=== PATIENT | female | born 1945 ===

== ENCOUNTER 2025-03-01 13:11 | Inpatient (IN) | payer OTHER ==
--- OUTSIDE RECORDS SUMMARY | 2025-03-01 13:15 | XMS REPORT | Clinical Summary ---
Author Name Unknown Organization [facility] Address [address] [place] [address] Care Team Providers Care Human Resources Supervisor Name Role Phone None Unavailable Allergies No known active allergies Medications gabapentin (Neurontin) 300 mg capsuleIndicat ions:Breast cancer Take 1 capsule (300 mg) by mouth every morning. 30 capsule 5 Active gabapentin (Neurontin) 300 mg capsuleIndicat ions:Breast cancer Take 1 capsule (300 mg) by mouth every morning. 30 capsule 5 08/24/19 25 Discontinued gabapentin (Neurontin) 300 mg capsuleIndicat ions:Breast cancer Take 1 capsule (300 mg) by mouth every morning. 30 capsule 5 08/26/19 25 Discontinued gabapentin (Neurontin) 300 mg capsuleIndicat ions:Breast cancer Take 1 capsule (300 mg) by mouth every morning. 30 capsule 5 08/26/19 25 Discontinued Encounters Date Type Department Care Team Description 08/23/2024 5:22 PM CDT - 08/23/2024 9:14 PM CDT Emergency [facility], 1st [place] [address] Chris Donato MD Breast cancer (Primary Dx); Lymphedema; Neuropathy Discharge Disposition: Home 08/23/2024 Travel after 03/01/2024 Social History Tobacco Use Types Packs/Day Years Used Date Smoking Tobacco: Never Assessed Comments Unknown Sex and Gender Information Value Date Recorded Sex Assigned at Not on file Legal Sex Female 5:12 PM CDT Gender Identity Not on file Sexual Orientation Not on file Last Filed Vital Signs Vital Sign Reading Time Taken Comments Blood Pressure 150/81 08/23/2024 7:50 PM CDT Pulse 80 08/23/2024 7:50 PM CDT Temperature 36.3 °C (97.3 °F) 08/23/2024 7:50 PM CD T Respiratory Rate 19 08/23/2024 7:50 PM CDT Oxygen Saturation 96% 08/23/2024 7:50 PM CDT Inhaled Oxygen Concentration - - Weight - - Height - - Body Mass Index - - Plan of Treatment Health Maintenance Due Date Last Done Comments Pneumococcal Vaccine: 50+ Years (1 of - PCV) 994 COVID-19 Vaccine ( - season) 2025 Influenza Vaccine (#1) 2025 05/10/2021 Procedures Procedure Name Priority Date/Time Associated Diagnosis Comments URINALYSIS MICROSCOPIC EXAM Routine 08/23/2024 7:29 PM CDT URINALYSIS WITH MICROSCOPIC IF INDICATED Routine 08/23/2024 7:29 PM CDT URINALYSIS WITH MICROSCOPIC IF INDICATED Routine 08/23/2024 7:29 PM CDT .CBC Routine 08/23/2024 6:36 PM CDT APTT Routine 08/23/2024 6:36 PM CDT PROTHROMBIN TIME Routine 08/23/2024 6:36 PM CDT PHOSPHORUS LEVEL Routine 08/23/2024 6:36 PM CDT MAGNESIUM LEVEL Routine 08/23/2024 6:36 PM CDT COMPREHENSIVE METABOLIC PANEL Routine 08/23/2024 6:36 PM CDT COMPLETE BLOOD COUNT W/ DIFFERENTIAL Routine 08/23/2024 6:36 PM CDT US ARM VENOUS DOPPLER RIGHT STAT 08/23/2024 6:13 PM CDT after 03/01/2024 Results * (ABNORMAL) Urinalysis w/Microscopic if Indicated (08/23/2024 7:29 PM CDT) Urine Appearance Clear Clear 08/24/19 7:48 PM CDT [facility] Urine Color Yellow Colorless, Straw, Yellow, Dark Yellow, Straw-Yellow 08/23/2024 7:48 PM CDT [facility] Urine Specific [place] 1.023 1.003 - 1.035 08/23/2024 7:48 PM CDT [facility] Urine pH 6.5 5.0 - 8.0 08/23/2024 7:48 PM CDT [facility] Urine Glucose Negative Negative mg/dL 08/23/2024 7:48 PM CDT [facility] Urine Ketones 10(A) Negative mg/dL 08/23/2024 7:48 PM CDT [facility] Urine Blood Negative Negative 08/23/2024 7:48 PM CDT [facility] Urine Protein 10(A) Negative mg/dL 08/23/2024 7:48 PM CDT [facility] Urine Bilirubin Negative Negative 7:48 PM CDT [facility] Urine Urobilinogen +2(A) Negative 08/23/2024 7:48 PM CDT [facility] Urine Nitrite Negative Negative 08/23/2024 7:48 PM CDT [facility] Urine Leukocyte Esterase Negative Negative 08/23/2024 7:48 PM CDT [facility] Urine (Urine Clean Catch) Non-blood Collection / Unknown 08/23/2024 7:29 PM CDT 08/23/2024 7:39 PM CDT [facility] - 08/23/2024 7:48 PM CDT Some reporting parameters within the Urinalysis test have changed due to the implementation of new instrumentation in the Main [place], allowing greater sensitivity of measurement. Urinalysis results reported by the [facility] using existing instrumentation, as well as Urinalysis testing performed manually or by back-up methodology at the main campus, will remain relatively unchanged. New reporting parameters and units will now be reported for all flushinges. us Chris Donato MD URINE ORDERABLES Final Result Performing Organization Address City/[facility]/ZIP Co de Phone Number [facility] Unless otherwise noted, all lab tests performed by: Division of Pathology and Laboratory Medicine [address] [place] [id number] * (ABNORMAL) Urinalysis Microscopic Exam (08/23/2024 7:29 PM CDT) Pathologist [facility] Urine Mucous Trace Not Seen, Trace /HPF 08/23/2024 7:55 PM CDT [facility] Urine Bacteria 1+(A) Not Seen /HPF 08/23/2024 7:55 PM CDT [facility] Urine Squamous Epithelial Cells OCC Not Seen, OCC, Rare /HPF 08/23/2024 7:55 PM CDT [facility] UA Transitional Epi OCC(A) Not Seen, <1 /HPF 08/23/2024 7:55 PM CDT [facility] Urine WBC 1 <=2 /HPF 08/23/2024 7:55 PM CDT [facility] Urine RBC 08/23/2024 7:55 PM CDT [facility] Comment:None Seen Urine (Urine Clean Catch) Non-blood Collection / Unknown 08/23/2024 7:29 PM CDT 08/23/2024 7:39 PM CDT Chris Donato MD LAB BLOOD ORDERABLES Final Resul t Performing Organization Address City/[facility]/ZIP Co de Phone Number [facility] Unless otherwise noted, all lab tests performed by: Division of Pathology and Laboratory Medicine [address] [place] [id number] * (ABNORMAL) .CBC (08/23/2024 6:36 PM CDT) White Blood Cell 7.0 4.1 - 10.5 K/uL 08/23/2024 6:47 PM CDT [facility] Red Blood Cell 4.05 3.99 - 5.46 M/uL 08/23/2024 6:47 PM CDT [facility] Hemoglobin 11.3(L) 12.2 - 15.3 g/dL 08/23/2024 6:47 PM CDT [facility] Hematocrit 35.2(L) 36.4 - 46.8 % 08/23/2024 6:47 PM CDT [facility] Mean Cell Volume 87 82 - 99 fL 08/23/2024 6:47 PM CDT [facility] Mean Cell Hemoglobin 27.9 26.6 - 33.2 pg 08/23/2024 6:47 PM CDT [facility] Mean Cell Hemoglobin Concentration 32.1 31.1 - 35.2 g/dL 08/23/2024 6:47 PM CDT [facility] RDW-SD 54.4(H) 37.5 - 49.7 fL 08/23/2024 6:47 PM CDT [facility] Red Cell Diameter Width 17.2(H) 11.6 - 15.5 % 08/23/2024 6:47 PM CDT [facility] Platelet 318 160 - 397 K/uL 08/23/2024 6:47 PM CDT [facility] Mean Platelet Volume 12.0 9.1 - 12.6 fL 08/23/2024 6:47 PM CDT [facility] INRBC 0.0 0.0 - 0.1 /100 WBC 08/23/2024 6:47 PM T [facility] Comment: The INRBC (instrument NRBC) value reflects the enumeration of nucleated red blood cells contained in a 200uL sample of whole blood analyzed by the instrument. This value may differ from the NRBC value reported in a manual differential, which is based on a 100 cell differential. Neutrophil % 66.6 43.2 - 72.7 % 08/23/2024 6:47 PM CDT [facility] Lymphocyte % 21.3 16.8 - 46.2 % 08/23/2024 6:47 PM CDT [facility] Monocyte % 9.3 5.1 - 12.5 % 08/23/2024 6:47 PM CDT [facility] Eosinophil % 1.1 0.4 - 6.3 % 08/23/2024 6:47 PM CDT [facility] Basophil % 1.1 0.2 - 1.4 % 08/23/2024 6:47 PM CDT [facility] IGRE % 0.6 0.1 - 1.5 % 08/23/2024 6:47 PM CDT [facility] Comment:The IGRE% includes M etamyelocytes, Myelocytes and Promyelocytes. Neutrophil Abs 4.63 1.95 - 7.25 K/uL 08/23/2024 6:47 PM CDT [facility] Lymphocyte Abs 1.48 1.01 - 3.24 K/uL 08/23/2024 6:47 PM CDT [facility] Monocyte Abs 0.65 0.24 - 0.85 K/uL 08/23/2024 6:47 PM CDT [facility] Eosinophil Abs 0.08 0.02 - 0.50 K/uL 08/23/2024 6:47 PM CDT [facility] Basophil Abs 0.08 0.02 - 0.09 K/uL 08/23/2024 6:47 PM CDT [facility] IG Abs 0.04 0.01 - 0.12 K/uL 08/23/2024 6:47 PM CDT [facility] Blood Peripheral blood specimen / Unknown Venipuncture / Unknown 08/23/2024 6:36 PM CDT 08/23/2024 6:42 PM CDT Chris Donato MD LAB BLOOD ORDERABLES Final Resul t [facility] Unless otherwise noted, all lab tests performed by: Division of Pathology and Laboratory Medicine [address] [place] [id number] * (ABNORMAL) Comprehensive Metabolic Panel (08/23/2024 6:36 PM CDT) Bilirubin Total 0.8 0.0 - 1.2 mg/dL 08/23/2024 7:05 PM CDT [facility] Comment:Indocyanine Green (I CG) may cause falsely elevated bilirubin results. Total and direct bilirubin must not be measured from samples containing indocyanine green. False elevation of total bilirubin can be seen in patients with IgG concentrations above 28 g/L. eGFR 87 >=60 mL/min/1. 73 sq. m 08/23/2024 7:05 PM T [facility] Comment: The eGFRcr is calculated with the 2020 CKD-EPI creatinine equation using creatinine, patient's age, and sex for adults 18 years of age and older. Other factors, especially muscle mass, may affect accuracy and need to be considered. According to the Kidney Disease: Improving Global Outcomes (KDIGO) CKD Work Group 2012 Clinical Practice Guideline, chronic kidney disease (CKD) is defined as the abnormalities of kidney structure or function, present for more than 3 months, with implications for health. CKD should be classified by cause, GFR category, and albuminuria category. KDIGO guidelines provide the following GFR categories. Stage / Description / GFR mL/min/1.73 m2: G1* / Normal or high / >= 90 G2* / Mildly decreased / 60-89 G3a / Mildly to moderately decreased / 45-59 G3b / Moderately to severely decreased / 30-44 G4 / Severely decreased / 15-29 G5 / Kidney failure / <15 *In the absence of evidence of kidney damage, neither G1 nor G2 fulfill criteria for CKD. Tot Protein 6.5 6.4 - 8.3 gm/dL 08/23/2024 7:05 PM CDT [facility] Calcium Level Total 9.3 8.2 - 10.2 mg/dL 08/23/2024 7:05 PM CDT [facility] Alkaline Phosphatase 250(H) 35 - 104 U/L 08/23/2024 7:05 PM CDT [facility] Albumin Level 3.2(L) 3.5 - 5.2 gm/dL 08/23/2024 7:05 PM CDT [facility] AST 26 <=32 U/L 08/23/2024 7:05 PM CDT [facility] ALT 11 <=33 U/L 08/23/2024 7:05 PM CDT [facility] Sodium Level 140 136 - 145 mmol/L 08/23/2024 7:05 PM CDT [facility] Potassium Level 4.0 3.4 - 4.5 mmol/L 08/23/2024 7:05 PM CDT [facility] Chloride 105 98 - 107 mmol/L 08/23/2024 7:05 PM CDT [facility] CO2 21(L) 22 - 29 mmol/L 08/23/2024 7:05 PM CDT [facility] Anion Gap 14 4 - 14 mmol/L 08/23/2024 7:05 PM CDT [facility] Creatinine 0.70 0.51 - 0.95 mg/dL 08/23/2024 7:05 PM CDT [facility] BUN 15 6 - 23 mg/dL 08/23/2024 7:05 PM CDT [facility] Glucose Level 136(H) 70 - 99 mg/dL 08/23/2024 7:05 PM CDT [facility] Comment: Effective 01/05/16, the glucose reference intervals have been updated based on [place] [employer] guidelines (Standards of Medical Care in Diabetes 2016. Diabetes Care 2016; 39: S13-S22). Fasting blood glucose: Normal: 70-99 mg/dL Impaired fasting glucose (increased risk for diabetes or pre-diabetes): 100-125 mg/dL Diabetes mellitus: >/=126 mg/dL Random blood glucose: Normal: 70-199 mg/dL Note: Random glucose >100 mg/dL is associated with increased risk for diabetes. Blood Peripheral blood specimen / Unknown Venipuncture / Unknown 08/23/2024 6:36 PM CDT 08/23/2024 6:42 PM CDT us Chris Donato MD LAB BLOOD ORDERABLES Final Resul t [facility] Unless otherwise noted, all lab tests performed by: Division of Pathology and Laboratory Medicine [address] [place] [id number] * (ABNORMAL) aPTT (08/23/2024 6:36 PM CDT) Activated PTT 36.1(H) 24.8 - 35.6 second(s) 08/23/2024 7:09 PM CDT [facility] Blood Peripheral blood specimen / Unknown Venipuncture / Unknown 08/23/2024 6:36 PM CDT 08/23/2024 6:42 PM CDT us Chris Donato MD LAB BLOOD ORDERABLES Final Resul t [facility] Unless otherwise noted, all lab tests performed by: Division of Pathology and Laboratory Medicine [address] [place] [id number] * (ABNORMAL) Prothrombin Time with INR (08/23/2024 6:36 PM CDT) Pathologist [facility] Prothrombin Time 18.6(H) 12.2 - 14.4 second(s) 08/23/2024 7:09 PM CDT [facility] International Normalization Ratio 1.59(H) 0.91 - 1.10 08/23/2024 7:09 PM CDT [facility] Blood Peripheral blood specimen / Unknown Venipuncture / Unknown 08/23/2024 6:36 PM CDT 08/23/2024 6:42 PM CDT us Chris Donato MD LAB BLOOD ORDERABLES Final Resul t Performing Organization Address City/[facility]/ZIP Co de Phone Number [facility] Unless otherwise noted, all lab tests performed by: Division of Pathology and Laboratory Medicine [address] [place] [id number] * Phosphorus Level (08/23/2024 6:36 PM CDT) Pathologist [facility] Phosphorus Level 3.4 2.5 - 4.5 mg/dL 08/23/2024 7:05 PM CDT [facility] Blood Peripheral blood specimen / Unknown Venipuncture / Unknown 08/23/2024 6:36 PM CDT 08/23/2024 6:42 PM CDT us Chris Donato MD LAB BLOOD ORDERABLES Final Resul t [facility] Unless otherwise noted, all lab tests performed by: Division of Pathology and Laboratory Medicine [address] [place] [id number] * Magnesium Level (08/23/2024 6:36 PM CDT) Magnesium Level 2.1 1.6 - 2.6 mg/dL 08/23/2024 7:05 PM CDT [facility] Blood Peripheral blood specimen / Unknown Venipuncture / Unknown 08/23/2024 6:36 PM CDT 08/23/2024 6:42 PM CDT us Chris Donato MD LAB BLOOD ORDERABLES Final Resul t [facility] Unless otherwise noted, all lab tests performed by: Division of Pathology and Laboratory Medicine [facility] [place] [address] * US Arm Venous Doppler Right (08/23/2024 6:13 PM CDT) Anatomical Region Laterality Modality Arm, Extremity Ultrasound 08/23/2024 6:39 PM CDT Impressions 08/23/2024 6:39 PM CDT No deep venous thrombosis in the right upper extremity ACTIONABLE ITEMS/RECOMMENDATIONS*: None. *An Actionable Finding is a finding that may be unrelated to the original reason for imaging but potentially actionable, meaning further investigation may be necessary. The Actionable Findings Vigilance Unit (AFVU) assists medical providers with responding to additional radiologic findings that are unexpected and potentially actionable. Narrative 08/23/2024 6:39 PM CDT Examination: US ARM VENOUS DOPPLER RIGHT on 08/23/2024 6:13 PM. Clinical History: Right upper extremity swelling. Indication: Arm/Neck Swelling. Comparison: None available. TECHNIQUE: Grayscale and color/spectral Doppler ultrasound of the right upper extremity veins. FINDINGS: There is normal compressibility and spontaneous flow within the internal jugular vein. Spontaneous flow within the proximal segment of the innominate vein and throughout the visualized subclavian vein. Normal compressibility and spontaneous flow within the axillary, brachial, basilic and cephalic veins. Procedure Note Nery Villegas MD - 08/23/2024 Examination: US ARM VENOUS DOPPLER RIGHT on 08/23/2024 6:13 PM. Clinical History: Right upper extremity swelling. Indication: Arm/Neck Swelling. Comparison: None available. TECHNIQUE: Grayscale and color/spectral Doppler ultrasound of the rightupper extremity veins. FINDINGS: There is normal compressibility and spontaneous flow within the internaljugular vein. Spontaneous flow within the proximal segment of theinnominate vein and throughout the visualized subclavian vein. Normalcompressibility and spontaneous flow within the axillary, brachial,basilic and cephalic veins. IMPRESSION: No deep venous thrombosis in the right upper extremity ACTIONABLE ITEMS/RECOMMENDATIONS*: None. *An Actionable Finding is a finding that may be unrelated to the originalreason for imaging but potentially actionable, meaning furtherinvestigation may be necessary. The Actionable Findings Vigilance Unit(AFVU) assists medical providers with responding to additional radiologicfindings that are unexpected and potentially actionable. Chris Donato MD [facility] ORDERABLES Final Result after 03/01/2024 Insurance [employer] PLUS MEDICARE HMO Care Teams Human Resources Supervisor Relationship Specialty Start Date End Date None PCP - External Primary Care Provider 08/25/24
--- NOTE | 2025-03-01 14:03 | RAD REPORT ---
EXAMINATION: Head C Spine Mpr Wo Con CLINICAL INDICATION: Female, 79 years old. fall, head injury TECHNIQUE: Axial CT images from the skull base to the vertex without intravenous contrast. Axial CT i mages through the cervical spine were obtained without intravenous contrast. Sagittal and coronal reformatted images were created from the data set. Coronal and sagittal reformatted images were creat ed from the data set. One or more of the following dose reduction techniques were used: Automated exposure control, adjustment of the mA and/or kV according to patient size, and/or iterative reconstr uction. Unless otherwise specified, incidental findings do not require dedicated imaging follow-up. [id number]. COMPARISON: No prior exams FINDINGS: Head: INTRACRANIAL: No acute intracranial hemorrhage. No acute large vascular territory infarct. No hydroce phalus. No mass effect or midline shift. Mild chronic small vessel ischemic changes.Mild cerebral atrophy. VASCULATURE: No visualized abnormalities in the arteries or dural venous sinuses. SCALP/SKULL: No calvarial fracture identified. No acute soft tissue abnormality. SINUSES: The visualized paranasal sinuses are mostly clear. No significant mastoid fluid. Cervical spine: ALIGNMENT: Trace anterolisthesis C3 on C4 and 3 mm anterolisthesis of C4 on C5. 2 mm of retrolisthesi s of C5 on C6. BONE: Numerous blastic metastatic lesions identified within the cervical spine. No acute fracture. Fu saúl across the C5-6 disc space may be developmental. DEGENERATIVE: Multilevel cervical spondylosis with evidence of bilateral neural foraminal narrowing. No high grade central spinal stenosis. SOFT TISSUE: No significant abnormalities in the soft tissue of the neck. The visualized lung apices are clear. IMPRESSION: No acute intracranial abnormality. No acute fracture or traumatic malalignment of the cervical spine. Osseous metastatic disease. The patient reportedly has a history of breast cancer.
--- NOTE | 2025-03-01 14:19 | RAD REPORT ---
EXAMINATION: Pelvis VIEWS: One view CLINICAL INDICATION: Female, 79 years old. BLUNT TRAUMA COMPARISON: No prior exams IMPRESSION: Displaced right subcapital femoral neck fracture with superolateral displacement by at least one thir d shaft width. No dislocation. Scattered sclerotic osseous lesions identified consistent with metastatic disease. Degenerative changes are present in the lower spine.
--- NOTE | 2025-03-01 14:20 | RAD REPORT ---
EXAMINATION: Hip Right 2 View VIEWS: Two views CLINICAL INDICATION: Female, 79 years old. PAIN RIGHT COMPARISON: No prior exams IMPRESSION: Displaced right subcapital femoral neck fracture. There is at least one third shaft width of superior and lateral displacement.Osseous metastatic disease identified. This fracture could be pathologic but correlate with mechanism of injury. No dislocation.
--- NOTE | 2025-03-01 14:21 | RAD REPORT ---
EXAMINATION: Shoulder Right 2+ Views CLINICAL INDICATION: Female, 79 years old. PAIN RIGHT COMPARISON: No prior exam. FINDINGS: No acute fracture. No malalignment/dislocation. Mild right AC joint degenerative changes. Other: n/a IMPRESSION: No acute osseous abnormality.
[2025-03-01] MEDS ORDERED: ONDANSETRON 4 MG/2 ML VIAL ONE (14:43)
[2025-03-01] MEDS ORDERED: MORPHINE 2 MG/ML SYR ONE ×2 (14:43→16:05)
--- NOTE | 2025-03-01 14:44 | ER ---
Nurse's Notes [facility] Name: Juan M Roberson Age: 79 yrs Sex: Female : 1945 Arrival Date: 03/01/2025 Time: 13:08 Bed 8 Private MD: Diagnosis: Acute, displaced, closed, subcapital right femur fracture Presentation: 03/01 13:08 Chief complaint: EMS states: tripped and fell at [employer] store. Pt fell to the right and aa5 hit head, denies LOC. Pt c/o pain to right hip and right shoulder. 13:08 Coronavirus screen: At this time, the client does not indicate any symptoms associated aa5 with coronavirus-19. Ebola Screen: Patient denies travel to an Ebola-affected area in the 21 days before illness onset. Initial Sepsis Screen: Does the patient meet any 2 criteria? No. Patient's initial sepsis screen is negative. Does the patient have a suspected source of infection? No. Patient's initial sepsis screen is negative. Risk Assessment: Do you want to hurt yourself or someone else? Patient reports no desire to harm self or others. Onset of symptoms was March 01, 2025. 13:08 Acuity: PAMELLA 3 aa5 13:08 Method Of Arrival: EMS: [facility] aa5 Historical: - Allergies: 13:08 Codeine; aa5 13:08 Sulfa (Sulfonamide Antibiotics); aa5 - Home Meds: 13:08 Eliquis oral [Active]; latanoprost 0.005 % ophthalmic (eye) drops 1 drop every evening aa5 for glaucoma [Active]; - PMHx: 13:08 Breast Cancer- Right; Atrial fibrillation; aa5 16:33 Glaucoma; aa5 - Immunization history:: Adult Immunizations unknown. - Infectious Disease History:: Denies. - Family history:: not pertinent. - Social history:: Smoking status: Patient denies any tobacco usage or history of. - Hospitalizations: : No recent hospitalization is reported. Screenin:08 [facility] ED Fall Risk Assessment (Adult) History of falling in the last 3 months, aa5 including since admission Yes- single mechanical fall (1 pt) Confusion or Disorientation No (0 pts) Intoxicated or Sedated No (0 pts) Impaired Gait No (0 pts) Mobility Assist Device Used No (0 pt) Altered Elimination No (0 pt) Score/Fall Risk Level 0 - 2 = Low Risk Oriented to surroundings, Maintained a safe environment, Educated pt \T\ family on fall prevention, incl call for assistance when getting out of bed, Assessed \T\ reinforced patient's understanding of fall precautions. Abuse screen: Denies threats or abuse. Nutritional screening: No deficits noted. Tuberculosis screening: No symptoms or risk factors identified. Assessment: 13:08 General: Appears comfortable, Behavior is calm, cooperative. Pain: Complains of pain in aa5 right hip and right shoulder Pain currently is 8 out of 10 on a pain scale. Quality of pain is described as aching, Pain began today post fall Is continuous. Neuro: Level of Consciousness is awake, alert, obeys commands, Oriented to person, place, time, situation. Cardiovascular: Patient's skin is warm and dry. Respiratory: Airway is patent Respiratory effort is even, unlabored, Respiratory pattern is regular, symmetrical. GI: No signs and/or symptoms were reported involving the gastrointestinal system. : No signs and/or symptoms were reported regarding the genitourinary system. EENT: No signs and/or symptoms were reported regarding the EENT system. Derm: Skin is pink, warm \T\ dry. Musculoskeletal: Reports pain in right hip and right shoulder. 14:58 Reassessment: Patient is alert, oriented x 3, equal unlabored respirations, skin aa5 warm/dry/pink. 16:08 Reassessment: Pt c/o increased pain to right hip, MD was notified. . aa5 16:08 Reassessment: Patient is alert, oriented x 3, equal unlabored respirations, skin aa5 warm/dry/pink. General: Appears uncomfortable. 16:11 Reassessment: Pt to CT via stretcher. . aa5 17:01 Reassessment: Patient is alert, oriented x 3, equal unlabored respirations, skin aa5 warm/dry/pink. Pain is decreased . 17:30 Reassessment: Patient is alert, oriented x 3, equal unlabored respirations, skin aa5 warm/dry/pink. Vital Signs: 13:08 BP 122 / 70; Pulse 92; Resp 18 S; Temp 98.1(O); Pulse Ox 95% on R/A; Weight 70.31 kg aa5 (R); Height 5 ft. 7 in. (R); 14:58 BP 139 / 90; Pulse 87; Resp 18 S; Pulse Ox 97% on R/A; aa5 16:10 BP 141 / 75; Pulse 91; Resp 18 S; Pulse Ox 94% on R/A; Pain 8/10; aa5 16:10 Pulse Ox 97% on 2 lpm NC; aa5 17:00 BP 126 / 85; Pulse 92; Resp 16 S; Temp 97.8(O); Pulse Ox 96% on 2 lpm NC; Pain 5/10; aa5 13:08 Body Mass Index 24.28 (70.31 kg, 170.18 cm) aa5 16:10 Pain Scale: Adult aa5 17:00 Pain Scale: Adult aa5 ED Course: 13:08 Patient arrived in ED. eb 13:08 Arm band placed on Patient placed in an exam room, on a stretcher. aa5 13:08 Patient has correct armband on for positive identification. Bed in low position. Call aa5 light in reach. Side rails up X 1. Pulse ox on. NIBP on. 13:10 Timothy Delgadillo MD is Attending Physician. rn 13:19 Annalise Centeno, ROYA is Primary Nurse. aa5 13:41 Triage completed. aa5 13:53 CT Head C Spine In Process Unspecified. EDMS 14:16 XRAY Shoulder RIGHT 2 view In Process Unspecified. EDMS 14:16 XRAY Pelvis In Process Unspecified. EDMS 14:16 XRAY Hip RIGHT 2 view In Process Unspecified. EDMS 14:28 No provider procedures requiring assistance completed. aa5 14:43 Eula Bedoya MD is Hospitalizing Provider. rn 14:50 Missed attempt(s): 22 gauge in left forearm. Bleeding controlled, band aid applied, aa5 catheter tip intact. 14:55 Initial lab(s) drawn, by nv, sent to lab. Inserted saline lock: 22 gauge in left aa5 antecubital area, using aseptic technique. Blood collected. Flushed with 10 mL NS. 17:30 Patient admitted, IV remains in place. aa5 Administered Medications: 14:58 Drug: morphine IVP or IV 2 mg IVP once over 4 mins Route: IVP; Infused Over: 4 mins; aa5 Site: left antecubital; 15:04 Follow up: Response: No adverse reaction aa5 14:58 Drug: Ondansetron IVP 4 mg IVP once; over 2 minutes Route: IVP; Site: left antecubital; aa5 15:04 Follow up: Response: No adverse reaction aa5 16:10 Drug: morphine IVP or IV 2 mg IVP once over 4 mins Route: IVP; Infused Over: 4 mins; aa5 Site: left antecubital; 16:30 Follow up: Response: No adverse reaction aa5 Medication: 14:26 VIS not applicable for this client. aa5 Outcome: 14:43 Decision to Hospitalize by Provider. rn 17:30 Admitted to ICU accompanied by nurse, accompanied by tech, via stretcher, with oxygen, aa5 on monitor, with chart, 17:30 Condition: stable 17:30 Instructed on the need for admit, Demonstrated understanding of instructions, 17:30 Patient left the ED. aa5 Signatures: Dispatcher [employer] EDMS Timothy Delgadillo MD MD rn Calderon, Audri, RN RN aa5 Sunitha Novoa Corrections: (The following items were deleted from the chart) 17:44 17:39 Patient left the ED. aa5 aa5 19:12 17:30 Patient left the ED. aa5 aa5
--- NOTE | 2025-03-01 14:44 | EDPHYS ---
Physician Documentation [facility] Name: Juan M Roberson Age: 79 yrs Sex: Female : 1945 Arrival Date: 03/01/2025 Time: 13:08 Bed 8 Private MD: ED Physician Timothy Delgadillo HPI: 03/01 13:19 This 79 yrs old Unknown Female presents to ER via Unassigned with complaints of fall. rn 13:19 Patient reports fall while at [employer], fell onto right side and injured right shoulder rn and right hip. Also hit right head. No LOC. No vomiting. Remembers all events.. Historical: - Allergies: 13:08 Codeine; aa5 13:08 Sulfa (Sulfonamide Antibiotics); aa5 - Home Meds: 13:08 Eliquis oral [Active]; latanoprost 0.005 % ophthalmic (eye) drops 1 drop every evening aa5 for glaucoma [Active]; - PMHx: 13:08 Breast Cancer- Right; Atrial fibrillation; aa5 16:33 Glaucoma; aa5 - Immunization history:: Adult Immunizations unknown. - Infectious Disease History:: Denies. - Family history:: not pertinent. - Social history:: Smoking status: Patient denies any tobacco usage or history of. - Hospitalizations: : No recent hospitalization is reported. ROS: 13:19 Constitutional: Negative for fever, chills, and weight loss, Eyes: Negative for injury, rn pain, redness, and discharge, Neck: Negative for injury, pain, and swelling, Cardiovascular: Negative for chest pain, palpitations, and edema, Respiratory: Negative for shortness of breath, cough, wheezing, and pleuritic chest pain, Abdomen/GI: Negative for abdominal pain, nausea, vomiting, diarrhea, and constipation, Back: Negative for injury and pain, MS/Extremity: Positive for right shoulder and right hip injury and pain Neuro: Positive for headache and head injury Exam: 13:19 Constitutional: This is a well developed, well nourished patient who is awake, alert, rn and in no acute distress. Head/Face: Right parietal small hematoma. No laceration Neck: No midline cervical tenderness Chest/axilla: No rib tenderness or crepitus Cardiovascular: Regular rate and rhythm. No pulse deficits. Respiratory: No increased work of breathing, no retractions or nasal flaring. Abdomen/GI: Soft, non-tender MS/ Extremity: Pulses equal, no cyanosis. Neurovascular intact. Mild painful range of motion of the right hip. No pain full range of motion of right knee or ankle. No focal tenderness elicited in right leg. Neuro: Awake and alert, GCS 15, oriented to person, place, time, and situation. Vital Signs: 13:08 BP 122 / 70; Pulse 92; Resp 18 S; Temp 98.1(O); Pulse Ox 95% on R/A; Weight 70.31 kg aa5 (R); Height 5 ft. 7 in. (R); 14:58 BP 139 / 90; Pulse 87; Resp 18 S; Pulse Ox 97% on R/A; aa5 16:10 BP 141 / 75; Pulse 91; Resp 18 S; Pulse Ox 94% on R/A; Pain 8/10; aa5 16:10 Pulse Ox 97% on 2 lpm NC; aa5 17:00 BP 126 / 85; Pulse 92; Resp 16 S; Temp 97.8(O); Pulse Ox 96% on 2 lpm NC; Pain 5/10; aa5 13:08 Body Mass Index 24.28 (70.31 kg, 170.18 cm) aa5 16:10 Pain Scale: Adult aa5 17:00 Pain Scale: Adult aa5 MDM: 13:10 Medical Screening Exam initiated rn 14:35 Differential diagnosis: closed head injury, contusion, fracture, multiple trauma, rn sprain, strain. Data reviewed: vital signs, nurses notes, old medical records, lab test result(s), radiologic studies, CT scan, plain films, and as a result, I will admit patient. Consideration of Admission/Observation Patient was admitted/placed on observation. Escalation of care including admission/observation considered. Independent interpretation of the following test(s) in the Emergency Department X-Ray: My interpretation is X-ray images right hip show subcapital fracture of femur per my interpretation. Counseling: I had a detailed discussion with the patient and/or guardian regarding the historical points, exam findings, and any diagnostic results supporting the discharge/admit diagnosis, radiology results, the need for further work-up and treatment in the hospital. Response to treatment: the patient's symptoms have mildly improved after treatment, and as a result, I will admit patient. 14:41 ED course: Patient states she believes she has had morphine before, has had multiple rn surgeries and hospitalizations. Will give small dose of morphine and reevaluate. Risk and benefit considered and explained to patient, she has an acute hip fracture and needs pain control.. 03/01 14:37 Order name: CBC with Diff; Complete Time: 15:19 rn 03/01 14:37 Order name: Basic Metabolic Panel 03/01 14:37 Order name: Protime (+inr); Complete Time: 15:19 rn 03/01 14:37 Order name: Ptt, Activated; Complete Time: 15:19 rn 03/01 13:18 Order name: CT Head C Spine; Complete Time: 14:27 rn 03/01 13:18 Order name: XRAY Shoulder RIGHT 2 view; Complete Time: 14:27 rn 03/01 13:18 Order name: XRAY Pelvis; Complete Time: 14:27 rn 03/01 13:18 Order name: XRAY Hip RIGHT 2 view; Complete Time: 14:27 rn 03/01 15:53 Order name: CT RIGHT HIP WO CONTRAST EDKS 03/01 15:53 Order name: Femur Right EDKS 03/01 16:34 Order name: CT EDKS 03/01 15:56 Order name: CONS Physician Consult EDKS 03/01 15:59 Order name: Patient Safety Orders [facility] 03/01 15:59 Order name: EKG Electrocardiogram [facility] 03/01 15:59 Order name: EKG Electrocardiogram [facility] 03/01 14:37 Order name: IV Start; Complete Time: 15:03 rn Administered Medications: 14:58 Drug: morphine IVP or IV 2 mg IVP once over 4 mins Route: IVP; Infused Over: 4 mins; aa5 Site: left antecubital; 15:04 Follow up: Response: No adverse reaction aa5 14:58 Drug: Ondansetron IVP 4 mg IVP once; over 2 minutes Route: IVP; Site: left antecubital; aa5 15:04 Follow up: Response: No adverse reaction aa5 16:10 Drug: morphine IVP or IV 2 mg IVP once over 4 mins Route: IVP; Infused Over: 4 mins; aa5 Site: left antecubital; 16:30 Follow up: Response: No adverse reaction aa5 Disposition Summary: 09/21/25 14:43 Hospitalization Ordered Notes: Hospitalization Status: Inpatient Admission rn Provider: Eula Bedoya rn Condition: Stable rn Problem: new rn Symptoms: have improved rn Bed/Room Type: Standard rn Location: Intensive Care Unit(03/01/25 16:52) ja1 Room Assignment: 5-(03/01/25 16:52) ja Diagnosis - Acute, displaced, closed, subcapital right femur fracture rn Forms: - Medication Reconciliation Form rn - SBAR form rn - Leadership Thank You Letter rn Signatures: Dispatcher [employer] EDMS Timothy Delgadillo MD MD rn Calderon, Audri RN RN aa5 Lei Sims RN RN ja1 Corrections: (The following items were deleted from the chart) 14:37 14:37 CBC+H.LAB.BRZ ordered. EDMS EDMS 14:37 14:37 BASIC METABOLIC PANEL+C.LAB.BRZ ordered. EDMS EDMS 14:37 14:37 PROTIME (+INR)+COAG.LAB.BRZ ordered. EDMS EDMS 14:37 14:37 PTT, ACTIVATED+COAG.LAB.BRZ ordered. EDMS EDMS 16:52 14:43 Telemetry/MedSurg (Inpatient) rn ja1 16:52 14:43 rn treasure1
[2025-03-01 15:13] LABS: Absolute Lymphocytes (CBC) 1.1 K/uL (0.7-4.9); Hematocrit 38.6 % (36.0-45.0); Hemoglobin 12.9 g/dL (12.0-15.0); MCH 31.1 pg (27.0-35.0); MCHC 33.3 g/dL (32.0-36.0); MCV 93.5 fL (80-100); MPV 10.2 fL (7.6-11.3); Nucleated RBC Absolute Count 0.0 (0-0); Nucleated Red Blood Cells % 0.1 % (0-0); RBC Red Blood Cell Count 4.13 M/uL (3.86-4.86); White Blood Count 7.10 thou/uL (4.3-10.9)
[2025-03-01 15:16] LABS: PT Prothrombin Time 16.2 SECONDS (10-13.0); PTT, Activated Partial Thromb 33.4 SECONDS (27.2-37.4); Protime INR 1.45
[2025-03-01 15:22] LABS: Anion Gap 7.2 mEq/L (5.0-15.0); BUN Blood Urea Nitrogen 23.0 mg/dL (7-18); Glucose Level 113.0 mg/dL (74-106); Potassium 4.2 mEq/L (3.5-5.1)
[2025-03-01] MEDS ORDERED: ACETAMINOPHEN 325 MG TABLET PO PRN (15:54)
--- NOTE | 2025-03-01 16:04 | P.HP ---
Certification for Inpatient With expected LOS: >2 Midnights Patient will require the following post-hospital care: Detention Practitioner: I am a practitioner with admitting privileges, knowledge of patient current condition, hospital course, and medical plan of care. Services: Services provided to patient in accordance with Admission requirements found in Title 42 Section 412.3 of the Code of Federal Regulations <Tevin Alcocer - Last Filed: 03/01/25 15:59> Patient History Date of Service: 03/01/25 Reason for admission: Subcapital right femur fracture, closed, displaced History of Present Illness: 79-year-old female presents with reports of right hip pain and right shoulder pain after trip and fall at [employer]. Patient has prior medical history of breast cancer and atrial fibrillation. Denies any dizziness, lightheadedness, vision alterations prior to fall. Denies any loss of consciousness at the time of fall. Currently endorsing right hip pain rated 8/10, nonradiating, minimally relieved by morphine IV 2 mg x 1. ER Course: Patient underwent a series of x-rays including shoulder, hip, pelvis, spine. X- rays revealed right subcapital femoral neck fracture. Dr. Bunch was contacted by ED provider for orthopedics consultation. Advised that patient is likely surgical candidate, but would need to delay intervention until at least 2 days from last dose of Eliquis. Patient given IV morphine and Zofran with mild symptom relief. Dr. Bunch aware of metastatic lesions on imaging requesting whole femur x-ray and hip CT. Plan to proceed with OR once she has completed Eliquis washout. Home medications list reviewed: Yes - Past Medical/Surgical History Has patient received pneumonia vaccine in the past: No Diabetic: No -: A-fib -: Breast cancer with metastasis-August 2024 Past Surgical History: Reviewed- Non-Contributory - Family History Family History: Reviewed- Non-Contributory - Social History Smoking Status: Never smoker CD- Drugs: No Caffeine use: Yes Place of Residence: Home <Tevin Alcocer - Last Filed: 03/01/25 15:59> Date of Service: 03/01/25 <Eula Bedoya - Last Filed: 03/16/25 00:29> Allergies codeine [Codeine] Allergy (Intermediate, Verified 11/01/11 20:51) AMS Home Medications: Apixaban [Eliquis] 1 tab PO DAILY 03/01/25 Latanoprost Ophth [Xalatan 0.005%*] 1 drop EACH EYE BEDTIME 03/01/25 Letrozole [Femara*] 2.5 mg PO DAILY 03/01/25 Pregabalin [Lyrica] 50 mg PO QID 03/01/25 Tramadol HCl [Ultram] 100 mg PO BID 03/01/25 Ensure Enlive 237 ml PO BID can 03/09/25 Hydrocodone 7.5/APAP 325 [Sewell 7.5/325 mg*] 1 tab PO Q4H PRN tab 03/09/25 Mupirocin Oint [Bactroban 2% Ointment*] 1 appl TOP BID tube 03/09/25 methocarbamoL [Robaxin*] 1,000 mg PO TID PRN tab 03/09/25 Review of Systems 10-point ROS is otherwise unremarkable <Tevin Alcocer - Last Filed: 03/01/25 15:59> Physical Examination - Physical Exam General: Alert, Oriented x3, Cooperative, Moderate distress, Obese HEENT: Atraumatic, Normocephalic, Mucous membr. moist/pink Neck: Supple, JVD not distended, No Thyromegaly, No LAD Respiratory: Clear to auscultation bilaterally, Normal air movement, Diminished (bases) Cardiovascular: No edema, Normal pulses, No gallops, No rubs, No murmurs Capillary refill: <2 Seconds Gastrointestinal: Normal bowel sounds, Soft and benign, Non-distended Musculoskeletal: No clubbing, No swelling, No contractures, No erythema, No warmth, Tenderness (r hip) Integumentary: No rashes, No breakdown, No significant lesion, No erythema, No warmth (r hip), Tenderness/swelling Neurological: Normal speech, Normal strength at 5/5 x4 extr, Normal tone, Sensation intact, Cranial nerves 3-12 intact, Normal affect External genitalia: Deferred Rectal: Deferred - Studies Laboratory Data (last 24 hrs) 03/01/25 03/01/25 03/01/25 14:55 14:55 14:55 WBC 7.10 Hgb 12.9 Hct 38.6 Plt Count 192 PT 16.2 H INR 1.45 APTT 33.4 Sodium 137 Potassium 4.2 BUN 23 H Creatinine 0.72 Glucose 113 H <Tevin Alcocer - Last Filed: 03/01/25 15:59> Assessment and Plan - Plan Assessment: 79-year-old female presents with reports of right hip pain and right shoulder pain after mechanical fall at [employer] without LOC, dizziness, lightheadedness, vision alterations. Patient has prior medical history of breast cancer and atrial fibrillation. She is admitted for surgical intervention with Dr Bunch s/p [facility]. Last dose 03/04 am. Plan: Subcapital right femur fracture, closed, displaced Hip pain Osseous metastatic disease Orthopedics consulted -X-ray results as noted below - Per discussion with Dr. Bunch (ortho), still need complete femur x-ray and CT hip Last dose of Eliquis 03/01 - AM - EKG ordered for preop evaluation - CBC, BMP nonconcerning Mechanical fall Right shoulder pain Right hip pain Right shoulder x-ray without acute osseous abnormality Pelvis/hip x-ray right subcapital femoral neck fracture with paralateral displacement by at least one third shaft width. Of note, scattered osseous lesions concerning for metastatic disease. Spine x-ray without concern for acute fracture/malalignment. However, evidence of osseous metastatic disease. - -Multimodal pain control with Ibuprofen 400 mg Q 6 hours as needed, Robaxin- 750 milligrams every 8 hours, Sewell 5 q4h PRN, morphine 4 mg IV Q 4 hours as needed for severe pain, will need to have vitals monitored to prevent hemodynamic intability/respiratory depression. Breast cancer, right Metastasis Followed by Dr.Kai Anderson at [facility] Evidence of metastasis on hip and spine x-rays. Patient and family aware prior to arrival. Continue letrozole 2.5 mg daily Discharge Plan: Home Plan to discharge in: 72 Hours - Advance Directives Does patient have a Living Will: No Does patient have a Durable POA for Healthcare: No - Code Status/Comfort Care Code Status Assessed: Yes Code Status: Do Not Attempt Resuscitat <Tevin Alcocer - Last Filed: 03/01/25 15:59> Date of Service: 03/01/25 Patient was seen and examined. Events of the last 24 hours have been noted. Spoke with with JOSELYN regarding patient's clinical picture after evaluating and examining the patient independently. I performed a substantial part of the MDM during this patient's care today. I personally made or approved the documented management plan and acknowledge its risk of complications. I agree with the findings and documentation provided in the JOSELYN's notes. <Eula Bedoya - Last Filed: 03/16/25 00:29>
--- NOTE | 2025-03-01 16:33 | RAD REPORT ---
EXAMINATION: Hip Right Wo Con CLINICAL INDICATION: Female, 79 years old.osseous lesion eval TECHNIQUE: CT above extremity was performed without contrast. Reformats were performed. One or more o f the following dose reduction techniques were used: Automated exposure control, adjustment of the mA and/or kV according to patient size, and/or iterative reconstruction. Unless otherwise specified, incidental findings do not require dedicated imaging follow-up. [id number]. COMPARISON: Same day radiograph FINDINGS: Displaced right femoral subcapital fracture with varus deformity. No dislocation. Small sclerotic foc i in the right femoral neck but no large blastic lesion to suggest a pathologic fracture. Osseous metastatic disease. No other acute fractures. IMPRESSION: Displaced right subcapital femoral neck fracture.Though a small osseous lesion is present in the femo ral neck, no large blastic lesion identified to confirm a pathologic fracture.
[2025-03-01] MEDS ORDERED: IBUPROFEN 400 MG TAB PO PRN (17:01)
--- NOTE | 2025-03-01 17:13 | RAD REPORT ---
EXAMINATION: Femur Right VIEWS: Two views CLINICAL INDICATION: Female, 79 years old. osseous lesion eval RIGHT COMPARISON: No prior exams IMPRESSION: The mid and distal femur were included in the [id number] for this exam. No fracture identified. Pa rtially imaged degenerative changes at the knee. Known right hip fracture included on the right hip series.
[2025-03-01 17:41] VITALS: BMI 27.8
[2025-03-01] MEDS: HEPARIN 5000 UNIT/ML 1 ML VIAL SQ SCH (17:57)
[2025-03-01] MEDS: HYDROCODONE/APAP 5/325 MG TAB PO PRN (18:01)
--- NOTE | 2025-03-02 08:22 | P.PN ---
Subjective Date of Service: 03/02/25 Chief Complaint: Subcapital right femur fracture, closed, displaced Subjective: Improving Patient on room air in no apparent distress with RN at the bedside. Patient endorses pain to the right lower extremity, worse with movement. Endorses good relief with current pain regiment. Denies fever, chills, numbness, tingling, pain out of proportion to injury and affected limb. Review of Systems 10-point ROS is otherwise unremarkable Physical Examination - Vital Signs Temperature: 97.2 F Blood Pressure: 127/56 Pulse: 90 Respirations: 13 Pulse Ox (%): 100 - Physical Exam General: Alert, Oriented x3, Cooperative, Mild distress, Obese HEENT: Atraumatic, Normocephalic, Mucous membr. moist/pink, EOMI Neck: Supple, JVD not distended, No Thyromegaly Respiratory: Clear to auscultation bilaterally, Normal air movement, Diminished Cardiovascular: No edema, Normal pulses, Regular rate/rhythm, Normal S1 S2 Capillary refill: <2 Seconds Gastrointestinal: Normal bowel sounds, Soft and benign, Non-distended Musculoskeletal: No clubbing, No swelling, No contractures, No erythema, No warmth, Tenderness (RLE) Integumentary: No rashes, No breakdown, No significant lesion, No erythema, No warmth, No cyanosis, Tenderness/swelling (RLE) Neurological: Normal speech, Normal tone, Sensation intact, Cranial nerves 3-12 intact, Normal affect External genitalia: Deferred Rectal: Deferred - Studies Laboratory Data (last 24 hrs) 03/01/25 03/01/25 03/01/25 14:55 14:55 14:55 WBC 7.10 Hgb 12.9 Hct 38.6 Plt Count 192 PT 16.2 H INR 1.45 APTT 33.4 Sodium 137 Potassium 4.2 BUN 23 H Creatinine 0.72 Glucose 113 H Medications List Reviewed: Yes Assessment And Plan - Plan Assessment: 79-year-old female presents with reports of right hip pain and right shoulder pain after mechanical fall at [employer] without LOC, dizziness, lightheadedness, vision alterations. Patient has prior medical history of breast cancer and atrial fibrillation. She is admitted for surgical intervention with Dr Bunch s/p Adan [facility]. Last dose 03/04 am. Plan: Subcapital right femur fracture, closed, displaced Hip pain Osseous metastatic disease Orthopedics consulted, Dr. Bunch following for planned procedure after Eliquis washout -X-ray results as noted below Last dose of Eliquis 03/01 - AM - EKG ordered for preop evaluation - CBC, BMP nonconcerning Mechanical fall Right shoulder pain Right hip pain Right shoulder x-ray without acute osseous abnormality Pelvis/hip x-ray right subcapital femoral neck fracture with paralateral displacement by at least one third shaft width. Of note, scattered osseous lesions concerning for metastatic disease. Spine x-ray without concern for acute fracture/malalignment. However, evidence of osseous metastatic disease. Right femur x-ray nonconcerning for pathological fracture CT hip nonconcerning for pathological fracture - Multimodal pain control with Ibuprofen 400 mg Q 6 hours as needed, Robaxin-750 milligrams every 8 hours, [place] 5 q4h PRN, morphine 4 mg IV Q 4 hours as needed for severe pain, will need to have vitals monitored to prevent hemodynamic intability/respiratory depression. Continue home Lyrica and tramadol Breast cancer, right Metastasis Followed by Dr.Kai Anderson at [facility] Evidence of metastasis on hip and spine x-rays. Patient and family aware prior to arrival. Continue letrozole 2.5 mg daily Glaucoma, right eye Continue latanoprost in right eye nightly Dispo: Fracture reduction with Dr. Bunch Anticipate SNF/IPR upon DC Discharge Plan: Senior Living Plan to discharge in: 48 Hours - Code Status/Comfort Care Code Status Assessed: No
[2025-03-02] MEDS: LETROZOLE 2.5 MG TAB PO SCH (09:55)
[2025-03-02] MEDS: TRAMADOL HCL 50 MG TAB PO SCH (09:55)
[2025-03-02] MEDS: PREGABALIN 50 MG CAP PO SCH (09:55)
[2025-03-02] MEDS: MORPHINE 4 MG/ML SYR IV PRN (11:06)
[2025-03-02] MEDS: LATANOPROST 0.005% 2.5ML OPTH *PT OWN MED OPTH SCH (21:00)
--- NOTE | 2025-03-02 22:40 | CON ---
Date of Consultation: 03/02/2025 History Of Present Illness: This is my first time seeing this patient to my knowledge. She is an 79 -year-old female who is currently being treated at another hospital for apparently metastatic breast carcinoma. She was seen in the emergency room after she sustained an injury to right lower extremity . X-rays were taken at that time, which demonstrated a displaced femoral neck fracture. It should b e noted that the interpretation of that x-ray includes the possibility of a pathologic lesion. She w as then admitted to the hospital under the care of the hospitalist and I came to see her in the ICU. On physical examination, all of her long bones and joints were palpated without any pain or crepitati on with the exception of her right hip which is painful to any movement or manipulation of her right hip. She does have some bilateral lower extremity neuropathy and complains of some mild right toe pa in, but she says that this is very frequent for her and she does not have any increased pain with pal pation or movement. There is also no swelling there. After I was called initially from the emergency room, I looked to the x-ray myself. I cannot really appreciate any pathologic lesion, however, definitely a fracture. CT scan was ordered, which by repo rt demonstrates no obvious pathologic changes. Also x-rays of the entire femur had been taken to [facility] for any metastasis, bony changes, or skin metastases. None of which were seen there. Assessment: This is an 79-year-old female with a history of metastatic breast carcinoma with new-ons et right femoral neck fracture. There is a little question on whether or not this is pathologic or n ot. However, the bone visualized appears to be free from any large lytic process. Risks, benefits, and alternatives of different methods of treating this were discussed with the patient as well as her family. The patient and family's plan, I believe, at this point is to have her taken care of at [facility] because she is currently undergoing treatment for her breast cancer there. A call has been m john to try to transfer her to [facility] from our hospital for continuity of care. However, at this p oint, we do not really have an answer from the receiving hospital of whether or not this is going to occur. I spoke with the family myself and obviously we would like to have her transferred as soon as possible or else take care over here. I believe it is well within our capabilities to treat this. It would be unfortunate if it was just associated with some metastatic lesion. However, I am not jyoti e that the operative care would be any different. They said that they are going to wait and see whet her or not [facility] will respond. If [facility] did not respond by tomorrow, we will most likely mov e forward with bipolar hemiarthroplasty here as this had been discussed with the patient and family. We will reassess this tomorrow. It should be noted that she was on Eliquis on time of admission, an d this would be our normal plan anyway to proceed with this tomorrow. All other questions were other cazares invited and answered. DELMIS Voice ID: [id number] Report ID: [id number]
[2025-03-03 06:12] LABS: Absolute Lymphocytes (CBC) 1.2 K/uL (0.7-4.9); Hematocrit 37.7 % (36.0-45.0); Hemoglobin 12.7 g/dL (12.0-15.0); MCH 31.6 pg (27.0-35.0); MCHC 33.8 g/dL (32.0-36.0); MCV 93.6 fL (80-100); MPV 9.9 fL (7.6-11.3); Nucleated RBC Absolute Count 0.0 (0-0); Nucleated Red Blood Cells % 0.1 % (0-0); RBC Red Blood Cell Count 4.02 M/uL (3.86-4.86); White Blood Count 6.30 thou/uL (4.3-10.9)
[2025-03-03 06:29] LABS: Anion Gap 7.3 mEq/L (5.0-15.0); BUN Blood Urea Nitrogen 19.0 mg/dL (7-18); Glucose Level 127.0 mg/dL (74-106); Potassium 4.3 mEq/L (3.5-5.1)
--- NOTE | 2025-03-03 08:13 | P.PN ---
Date of Service: 03/03/25 [facility] Live Progress Note Subjective Date of Service: 03/02/25 Chief Complaint: Subcapital right femur fracture, closed, displaced Subjective: Improving Patient on room air in no apparent distress with RN at the bedside. Patient endorses pain to the right lower extremity and right shoulder, worse with movement. Endorses good relief of pain with current pain regiment. She has noticed that she has limited range of motion of the right shoulder. Denies fever, chills, numbness, tingling, pain out of proportion to injury and affected limb. Reviewed PT will work with their and anticipate rehab for RUE and RLE. Patient concerned about missing infusion on . Advised will work to ensure coordination of possible. If patient goes to the OR today, can likely p roceed to SNF tomorrow who can transport her to her infusion . Review of Systems 10-point ROS is otherwise unremarkable Physical Examination - Vital Signs Temp Pulse Resp BP Pulse Ox 98.6 F 89 14 124/67 100 03/03/25 08:00 03/03/25 08:00 03/03/25 08:00 03/03/25 08:00 03/03/25 08:00 - Physical Exam General: Alert, Oriented x3, Cooperative, Mild distress, Obese HEENT: Atraumatic, Normocephalic, Mucous membr. moist/pink, EOMI Neck: Supple, JVD not distended, No Thyromegaly Respiratory: Clear to auscultation bilaterally, Normal air movement, Diminished Cardiovascular: No edema, Normal pulses, Regular rate/rhythm, Normal S1 S2 Capillary refill: <2 Seconds Gastrointestinal: Normal bowel sounds, Soft and benign, Non-distended Musculoskeletal: No clubbing, No swelling, No contractures, No erythema, No warmth, Tenderness (RLE), L ROM RUE forward extension 30 degrees active range of motion Integumentary: No rashes, No breakdown, No significant lesion, No erythema, No warmth, No cyanosis, Tenderness/swelling (RLE) Neurological: Normal speech, Normal tone, Sensation intact, Cranial nerves 3-12 intact, Normal affect External genitalia: Deferred Rectal: Deferred - Studies Laboratory Data (last 24 hrs) Creatinine 0.49 03/03/2025 BUN 19 03/03/2025 Glucose 120 03/03/2025 Medications List Reviewed: Yes Assessment And Plan - Plan Assessment: 79-year-old female presents with reports of right hip pain and right shoulder pain with limited range of motion after mechanical fall [place] [employer] without LOC, dizziness, lightheadedness, vision alterations. Patient has prior medical history of breast cancer and atrial fibrillation. She is admitted for surgical intervention with Dr Bunch s/p Adan washout. Last dose 03/04 am. Patient and daughter were requesting transfer to [facility] for care, however, [facility] has not excepted. At this time patient is agreeable to proceed with procedure here. Plan: Subcapital right femur fracture, closed, displaced Hip pain Osseous metastatic disease Orthopedics consulted, Dr. Bunch planned OR today 03/03, patient agreeable - X-ray results as noted below Last dose of Eliquis 03/01 - AM - EKG reviewed, nonconcerning - CBC, BMP nonconcerning Mechanical fall Right shoulder pain Right hip pain Right shoulder x-ray without acute osseous abnormality Pelvis/hip x-ray right subcapital femoral neck fracture with paralateral displacement by at least one third shaft width. Of note, scattered osseous lesions concerning for metastatic disease. Spine x-ray without concern for acute fracture/malalignment. However, evidence of osseous metastatic disease. Right femur x-ray nonconcerning for pathological fracture CT hip nonconcerning for pathological fracture - Multimodal pain control with Ibuprofen 400 mg Q 6 hours as needed, Robaxin-750 milligrams every 8 hours, [place] 5 q4h PRN, morphine 4 mg IV Q 4 hours as needed for severe pain, will need to have vitals monitored to prevent hemodynamic intability/respiratory depression. Continue home Lyrica and tramadol Breast cancer, right Metastasis Followed by Dr.Kai Anderson at [facility] Evidence of metastasis on hip and spine x-rays. Patient and family aware prior to arrival. Continue letrozole 2.5 mg daily Next infusion scheduled 03/05 Glaucoma, right eye Continue latanoprost in right eye nightly Dispo: Fracture reduction with Dr. Bunch Anticipate SNF/IPR upon DC Discharge Plan: Assisted Plan to discharge in: 48 Hours
[2025-03-03] MEDS: ENSURE ENLIVE 237 ML CAN PO SCH (09:00)
[2025-03-03] MEDS: NA CHLORIDE 0.9% 1,000 ML IV SCH (09:56)
[2025-03-03] MEDS: ROPLVACAINE HCL 20 ML ONE (10:46)
[2025-03-03] MEDS: EPINEPHRINE 1 MG/ML VIAL ONE (10:46)
[2025-03-03] MEDS: BUPIVACAINE 0.5% PF 10 ML VIAL ONE (10:47)
[2025-03-03] MEDS: MIDAZOLAM HCL 2 MG/2 ML INJ ONE (10:47)
[2025-03-03] MEDS: FENTANYL CITR 100 MCG/2 ML ONE (10:47)
[2025-03-03] MEDS: LIDOCAINE 1% MPF 5 ML VIAL ONE (11:02)
[2025-03-03] MEDS ORDERED: ONDANSETRON 4 MG/2 ML VIAL ONE (11:38)
[2025-03-03] MEDS ORDERED: LIDOCAINE 2% MPF 5 ML VIAL ONE (11:38)
[2025-03-03] MEDS: TRANEXAMIC ACID 1,000 MG/10 ML VIAL IV ONE (11:50)
[2025-03-03] MEDS: METOPROLOL TARTRATE 5 MG/5 ML INJ IV ONE (14:51)
[2025-03-03] MEDS: CEFAZOLIN 1 GM in NA CHLORIDE 0.9% 50 ML IVPB SCH (18:21)
[2025-03-03] MEDS: LATANOPROST 0.005% 2.5ML OPTH *PT OWN MED OPTH SCH (22:35)
--- NOTE | 2025-03-04 01:36 | OP ---
Date of Procedure: 03/03/2025 Surgeon: Naveed Bunch MD Preoperative Diagnosis: Displaced right femoral neck fracture. Postoperative Diagnosis: Displaced right femoral neck fracture. Procedure Performed: Bipolar hemiarthroplasty using the Biomet Echo cemented stem. Estimated Blood Loss: 100 cc. Complications: There were no complications. The excised fragments were sent to pathology. Indications For Operation: The patient is an 79-year-old female who unfortunately has metastatic tasha ast cancer by history. She unfortunately injured her right hip. She was seen in exam in the emergen cy department where she was admitted to the floor. She was on Eliquis and this was stopped. The pat ient and family expressed desire to be transferred to [facility] where she is being treated for metast atic cancer. Unfortunately, there was no bed available and she does have a fractured hip. We do zeina t for the Eliquis to resolve and in the meantime, try to get her transferred to where she would igor e. However, this morning, still did not have any indication when [facility] would be able to have her as a patient and still has a fractured hip. I spoke with her on consultation that we definitely can handle this broken hip here and she was amenable, but wanted to see if she would go to [facility]. Job owever, apparently that is not anything that we can predict at this point, and both the patient and shy wayne agreed that fixing the hip here is an acceptable. Risks, benefits, and alternatives to this pr ocedure were discussed with the patient and family. They stated they understand things as presented and wished to proceed. Description Of Procedure: The patient was has a block in the holding area. She was then brought to the operating room. She undergoes general anesthesia. She was then properly positioned using axilla ry roll as well as hip positioners. All of her bony prominences being checked by Anesthesia. Follow ing this, her right lower extremity was then prepped and draped in usual sterile fashion for the proc edure. A standard posterior lateral incision was then made carefully through skin and adipose tissue with meticulous hemostasis being maintained using Bovie electrocautery. This leads down to near the tip of the greater trochanter and slightly inferiorly where the fascia was encountered. A small sta b wound was made in the fascia. Gluteal tendon was palpated and the fascial incision brought up to n ear the tip of the greater trochanter and then curved gently backward with finger pressure. Sciatic nerve was protected as the Charnley was placed and the femoral neck fracture was easily seen. The ne ck was then cut in standard fashion and the ball was removed. It was then sized using ring gauges. Any material and the acetabulum were removed including bony fragments as well as soft tissue. After this, attention was turned back to the femur and juke box servicer was used to lateralize, which was followe d by cylindrical reaming followed by broaching and broached up to a size 10 with 11 progressing about retirement down. Decision was made to go ahead and cemented in 9. The canal was then copiously irriga hiwto with femoral tip jet lavage. The bone plug was placed without difficulty at desired depth. The canal was then filled and pressurized with cement with the size 9 echo stem being placed selected is a high offset or lateralized stem. This was held in place in proper version until the cement was michael dened. After this, it was then trialed using standard ball. This reduces well and found to be stabl e to full flexion, adduction and internal rotation to at least 30 to 45 degrees. This was selected a s the implant and the final ball was then placed. It was then reduced and stable in above areas. Af ter this, jet lavage was used and the capsule was repaired back to the femur via bone tunnels. It wa s again irrigated and the fascia closed in a watertight fashion using heavy Vicryl sutures. It was a gain irrigated and the skin was closed using Vicryl sutures followed by [facility]. The patient was the n placed in Aquacel dressing, awakened, and taken to recovery room in good condition. There were no complications. SE/MODL Voice ID: [id number] Report ID: [id number]
[2025-03-04 10:57] LABS: Hematocrit 37.1 % (36.0-45.0); Hemoglobin 12.4 g/dL (12.0-15.0); MCH 31.3 pg (27.0-35.0); MCHC 33.3 g/dL (32.0-36.0); MCV 93.8 fL (80-100); MPV 9.9 fL (7.6-11.3); RBC Red Blood Cell Count 3.96 M/uL (3.86-4.86); White Blood Count 9.60 thou/uL (4.3-10.9)
[2025-03-04 11:15] LABS: Anion Gap 9.2 mEq/L (5.0-15.0); BUN Blood Urea Nitrogen 26.0 mg/dL (7-18); Glucose Level 169.0 mg/dL (74-106); Magnesium 2.0 mg/dL (1.6-2.4); Potassium 4.2 mEq/L (3.5-5.1)
[2025-03-04] MEDS: APIXABAN 5 MG TABLET PO SCH (11:36)
--- NOTE | 2025-03-04 14:43 | P.PN ---
Date of Service: 03/04/25 [facility] Live Progress Note Subjective Date of Service: 03/04/25 Chief Complaint: Subcapital right femur fracture, closed, displaced Subjective: Improving Patient on room air in no apparent distress with RN at the bedside. Patient endorses persistent pain, but improved since prior to surgery. Denies fever, chills, NVD. Review of Systems 10-point ROS is otherwise unremarkable Physical Examination - Vital Signs Temp Pulse Resp BP Pulse Ox 98.3 F 93 16 106/64 98 03/04/25 - Physical Exam General: Alert, Oriented x3, Cooperative, Mild distress, Obese HEENT: Atraumatic, Normocephalic, Mucous membr. moist/pink, EOMI Neck: Supple, JVD not distended, No Thyromegaly Respiratory: Clear to auscultation bilaterally, Normal air movement, Diminished Cardiovascular: No edema, Normal pulses, Regular rate/rhythm, Normal S1 S2 Capillary refill: <2 Seconds Gastrointestinal: Normal bowel sounds, Soft and benign, Non-distended Musculoskeletal: No clubbing, No swelling, No contractures, No erythema, No warmth, Tenderness (RLE), L ROM RUE forward extension 30 degrees active range of motion Integumentary: No rashes, No breakdown, No significant lesion, No erythema, No warmth, No cyanosis, Tenderness/swelling (RLE) Neurological: Normal speech, Normal tone, Sensation intact, Cranial nerves 3-12 intact, Normal affect External genitalia: Deferred Rectal: Deferred - Studies Laboratory Data (last 24 hrs) Creatinine 0.79 03/04/2025 BUN 26 03/04/2025 Glucose 127 03/04/2025 Medications List Reviewed: Yes Assessment And Plan - Plan Assessment: 79-year-old female presents with reports of right hip pain and right shoulder pain with limited range of motion after mechanical fall [place] [employer] without LOC, dizziness, lightheadedness, vision alterations. Patient has prior medical history of breast cancer and atrial fibrillation. S/p reduction with Dr Bunch and restarted on home Eliquis. Patient pending insurance authorization for SNF versus IPR. Plan: Subcapital right femur fracture, closed, displaced Hip pain Osseous metastatic disease Status post reduction with Dr. Bunch 03/03 - X-ray results as noted below Eliquis resumed - EKG reviewed, nonconcerning - CBC, BMP nonconcerning -Pain control as noted below Mechanical fall Right shoulder pain Right hip pain Right shoulder x-ray without acute osseous abnormality Pelvis/hip x-ray right subcapital femoral neck fracture with paralateral displacement by at least one third shaft width. Of note, scattered osseous lesions concerning for metastatic disease. Spine x-ray without concern for acute fracture/malalignment. However, evidence of osseous metastatic disease. Right femur x-ray nonconcerning for pathological fracture CT hip nonconcerning for pathological fracture, specimen sent for further eval - Multimodal pain control with Ibuprofen 400 mg Q 6 hours as needed, Robaxin-750 milligrams every 8 hours, [place] 5 q4h PRN, morphine 4 mg IV Q 4 hours as needed for severe pain, will need to have vitals monitored to prevent hemodynamic intability/respiratory depression. Continue home Lyrica and tramadol Breast cancer, right Metastasis Followed by Dr.Kai Anderson at [facility] Evidence of metastasis on hip and spine x-rays. Patient and family aware prior to arrival. Continue letrozole 2.5 mg daily Next infusion scheduled 03/05 Glaucoma, right eye Continue latanoprost in right eye nightly Dispo: Fracture reduction with Dr. Bunch Anticipate SNF/IPR upon DC Discharge Plan: Shelter Plan to discharge in: 48 Hours
[2025-03-04] MEDS: MUPIROCIN 2% OINT 22GM TUBE TOP SCH (20:20)
--- NOTE | 2025-03-05 12:44 | P.HP ---
Date of Service: 03/05/25 Progress Note Subjective Date of Service: 03/04/25 Chief Complaint: Subcapital right femur fracture, closed, displaced Subjective: Improving Patient on room air in no apparent distress with RN at the bedside. Patient endorses persistent pain, but improved since prior to surgery. Denies fever, chills, NVD. Patient endorsing readiness to begin rehab. Review of Systems 10-point ROS is otherwise unremarkable Physical Examination - Vital Signs Temp Pulse Resp BP Pulse Ox 98.9 F 86 16 132/60 100 03/05/25 - Physical Exam General: Alert, Oriented x3, Cooperative, NAD, Obese HEENT: Atraumatic, Normocephalic, Mucous membr. moist/pink, EOMI Neck: Supple, JVD not distended, No Thyromegaly Respiratory: Clear to auscultation bilaterally, Normal air movement, Diminished Cardiovascular: No edema, Normal pulses, Regular rate/rhythm, Normal S1 S2 Capillary refill: <2 Seconds Gastrointestinal: Normal bowel sounds, Soft and benign, Non-distended Musculoskeletal: No clubbing, No swelling, No contractures, No erythema, No warmth, painful ROM LLE Integumentary: No rashes, No breakdown, No significant lesion, No erythema, No warmth, No cyanosis, Tenderness/swelling (RLE) Neurological: Normal speech, Normal tone, Sensation intact, Cranial nerves 3-12 intact, Normal affect External genitalia: Deferred Rectal: Deferred - Studies Laboratory Data (last 24 hrs) Creatinine 0.79 03/04/2025 BUN 26 03/04/2025 Glucose 127 03/04/2025 Medications List Reviewed: Yes Assessment And Plan - Plan Assessment: 79-year-old female presents with reports of right hip pain and right shoulder pain with limited range of motion after mechanical fall [place] [employer] without LOC, dizziness, lightheadedness, vision alterations. Patient has prior medical history of breast cancer and atrial fibrillation. S/p reduction with Dr Bunch and restarted on home Eliquis. Patient pending insurance authorization for SNF versus IPR. Plan: Subcapital right femur fracture, closed, displaced Hip pain Osseous metastatic disease Status post reduction with Dr. Bunch 03/03 - X-ray results as noted below Eliquis resumed - EKG reviewed, nonconcerning - CBC, BMP nonconcerning, repeat ordered 02/28 -Pain control as noted below Mechanical fall Right shoulder pain Right hip pain Right shoulder x-ray without acute osseous abnormality Pelvis/hip x-ray right subcapital femoral neck fracture with paralateral displacement by at least one third shaft width. Of note, scattered osseous lesions concerning for metastatic disease. Spine x-ray without concern for acute fracture/malalignment. However, evidence of osseous metastatic disease. Right femur x-ray nonconcerning for pathological fracture CT hip nonconcerning for pathological fracture, specimen sent for further eval - Multimodal pain control with Ibuprofen 400 mg Q 6 hours as needed, Robaxin-750 milligrams every 8 hours, [place] 5 q4h PRN, DC morphine 4 mg IV Breast cancer, right Metastasis Followed by Dr[facility]Kai Anderson at [facility] Evidence of metastasis on hip and spine x-rays. Patient and family aware prior to arrival. Continue letrozole 2.5 mg daily Glaucoma, right eye Continue latanoprost in right eye nightly Dispo: Pending [place] for IPR Discharge Plan: [facility]iary Plan to discharge in: Within 24 Hours pending auth
[2025-03-06 05:59] LABS: Hematocrit 33.0 % (36.0-45.0); Hemoglobin 11.0 g/dL (12.0-15.0); MCH 31.2 pg (27.0-35.0); MCHC 33.4 g/dL (32.0-36.0); MCV 93.2 fL (80-100); MPV 9.8 fL (7.6-11.3); RBC Red Blood Cell Count 3.54 M/uL (3.86-4.86); White Blood Count 8.10 thou/uL (4.3-10.9)
[2025-03-06 06:12] LABS: Anion Gap 10.1 mEq/L (5.0-15.0); BUN Blood Urea Nitrogen 17.0 mg/dL (7-18); Glucose Level 114.0 mg/dL (74-106); Magnesium 1.9 mg/dL (1.6-2.4); Potassium 4.1 mEq/L (3.5-5.1)
--- NOTE | 2025-03-06 10:08 | P.PN ---
Date of Service: 03/06/25 [facility] Live Progress Note Subjective Chief Complaint: Subcapital right femur fracture, closed, displaced Subjective: Improving Patient on room air in no apparent distress with RN at the bedside. Patient endorses improving pain since surgery. Denies fever, chills, NVD, bleeding. Review of Systems 10-point ROS is otherwise unremarkable Physical Examination - Vital Signs Temp Pulse Resp BP Pulse Ox 98 F 87 16 133/56 99 03/05/25 0800 - Physical Exam General: Alert, Oriented x3, Cooperative, NAD, Obese HEENT: Atraumatic, Normocephalic, Mucous membr. moist/pink, EOMI Neck: Supple, JVD not distended, No Thyromegaly Respiratory: Clear to auscultation bilaterally, Normal air movement, Diminished Cardiovascular: No edema, Normal pulses, Regular rate/rhythm, Normal S1 S2 Capillary refill: <2 Seconds Gastrointestinal: Normal bowel sounds, Soft and benign, Non-distended Musculoskeletal: No clubbing, No swelling, No contractures, No erythema, No warmth, PROM RLE Integumentary: No rashes, No breakdown, No significant lesion, No erythema, No warmth, No cyanosis Neurological: Normal speech, Normal tone, Sensation intact, Cranial nerves 3-12 intact, Normal affect External genitalia: Deferred Rectal: Deferred - Studies Laboratory Data (last 24 hrs) Creatinine 0.79 03/04/2025 BUN 26 03/04/2025 Glucose 127 03/04/2025 Medications List Reviewed: Yes Assessment And Plan - Plan Assessment: 79-year-old female presents with reports of right hip pain and right shoulder pain with limited range of motion after mechanical fall at [employer] without LOC, dizziness, lightheadedness, vision alterations. Patient has prior medical history of breast cancer and atrial fibrillation. S/p reduction with Dr Bunch and restarted on home Eliquis. Patient pending insurance authorization for SNF versus IPR. Request received for P2P for inpatient rehab, left message for callback to complete peer to peer. Plan: Subcapital right femur fracture, closed, displaced Hip pain Osseous metastatic disease Status post reduction with Dr. Bunch 03/03 - X-ray results as noted below Eliquis resumed - EKG reviewed, nonconcerning - CBC, BMP nonconcerning -Pain control as noted below Mechanical fall Right shoulder pain Right hip pain Right shoulder x-ray without acute osseous abnormality Pelvis/hip x-ray right subcapital femoral neck fracture with paralateral displacement by at least one third shaft width. Of note, scattered osseous lesions concerning for metastatic disease. Spine x-ray without concern for acute fracture/malalignment. However, evidence of osseous metastatic disease. Right femur x-ray nonconcerning for pathological fracture CT hip nonconcerning for pathological fracture, specimen sent for further eval - Multimodal pain control with Ibuprofen 400 mg Q 6 hours as needed, Robaxin-750 milligrams every 8 hours, [place] 5 q4h PRN, morphine 4 mg IV Q 4 hours as needed for severe pain, will need to have vitals monitored to prevent hemodynamic intability/respiratory depression. Continue home Lyrica and tramadol Breast cancer, right Metastasis Followed by Dr.Kai Anderson at [facility] Evidence of metastasis on hip and spine x-rays. Patient and family aware prior to arrival. Continue letrozole 2.5 mg daily Glaucoma, right eye Continue latanoprost in right eye nightly Dispo: Pending peer to peer completion with [employer] Anticipate SNF/IPR upon DC Discharge Plan: Assisted Plan to discharge in: Medically ready once Auth received
--- NOTE | 2025-03-07 11:15 | P.PN ---
Date of Service: 03/07/25 [facility] Live Progress Note Subjective Chief Complaint: Subcapital right femur fracture, closed, displaced Subjective: Improving Patient on room air in no apparent distress with RN at the bedside. Patient endorses improving pain since surgery. Denies fever, chills, NVD, bleeding. Review of Systems 10-point ROS is otherwise unremarkable Physical Examination - Vital Signs Temp Pulse Resp BP Pulse Ox 97.7 F 83 16 117/66 100 03/07/25 0800 - Physical Exam General: Alert, Oriented x3, Cooperative, NAD, Obese HEENT: Atraumatic, Normocephalic, Mucous membr. moist/pink, EOMI Neck: Supple, JVD not distended, No Thyromegaly Respiratory: Clear to auscultation bilaterally, Normal air movement, Diminished Cardiovascular: No edema, Normal pulses, Regular rate/rhythm, Normal S1 S2 Capillary refill: <2 Seconds Gastrointestinal: Normal bowel sounds, Soft and benign, Non-distended Musculoskeletal: No clubbing, No swelling, No contractures, No erythema, No warmth, PROM RLE Integumentary: No rashes, No breakdown, No significant lesion, No erythema, No warmth, No cyanosis Neurological: Normal speech, Normal tone, Sensation intact, Cranial nerves 3-12 intact, Normal affect External genitalia: Deferred Rectal: Deferred - Studies Laboratory Data (last 24 hrs) Creatinine 0.42 03/06/2025 BUN 17 03/06/2025 Glucose 114 03/06/2025 Medications List Reviewed: Yes Assessment And Plan - Plan Assessment: 79-year-old female presents with reports of right hip pain and right shoulder pain with limited range of motion after mechanical fall at [employer] without LOC, dizziness, lightheadedness, vision alterations. Patient has prior medical history of breast cancer and atrial fibrillation. S/p reduction with Dr Bunch and restarted on home Eliquis. Patient pending insurance authorization for SNF versus IPR. Request received for P2P for inpatient rehab, left message for callback to complete peer to peer. Plan: Subcapital right femur fracture, closed, displaced Hip pain Osseous metastatic disease Status post reduction with Dr. Bunch 03/03 - X-ray results as noted below Eliquis resumed - EKG reviewed, nonconcerning - CBC, BMP nonconcerning -Pain control as noted below Mechanical fall Right shoulder pain Right hip pain Right shoulder x-ray without acute osseous abnormality Pelvis/hip x-ray right subcapital femoral neck fracture with paralateral displacement by at least one third shaft width. Of note, scattered osseous lesions concerning for metastatic disease. Spine x-ray without concern for acute fracture/malalignment. However, evidence of osseous metastatic disease. Right femur x-ray nonconcerning for pathological fracture CT hip nonconcerning for pathological fracture, specimen sent for further eval - Multimodal pain control with Ibuprofen 400 mg Q 6 hours as needed, Robaxin-750 milligrams every 8 hours, [place] 5 q4h PRN, morphine 4 mg IV Q 4 hours as needed for severe pain, will need to have vitals monitored to prevent hemodynamic intability/respiratory depression. Continue home Lyrica and tramadol Breast cancer, right Metastasis Followed by Dr.Kai Anderson at [facility] Evidence of metastasis on hip and spine x-rays. Patient and family aware prior to arrival. Continue letrozole 2.5 mg daily Glaucoma, right eye Continue latanoprost in right eye nightly Dispo: [facility] declined IPR, patient informed and states that she plans to talk to her daughter to likely appeal the decision Likely SNF Discharge Plan: Rehab Plan to discharge in: Medically ready once Auth received
[2025-03-07] MEDS: HYDROMORPHONE HCL 0.5 MG/0.5 ML INJ IV ONE (23:08)
[2025-03-08 04:19] LABS: Hematocrit 32.1 % (36.0-45.0); Hemoglobin 10.6 g/dL (12.0-15.0); MCH 30.8 pg (27.0-35.0); MCHC 32.9 g/dL (32.0-36.0); MCV 93.6 fL (80-100); MPV 9.7 fL (7.6-11.3); RBC Red Blood Cell Count 3.44 M/uL (3.86-4.86); White Blood Count 7.30 thou/uL (4.3-10.9)
[2025-03-08 04:36] LABS: Anion Gap 6.3 mEq/L (5.0-15.0); BUN Blood Urea Nitrogen 16.0 mg/dL (7-18); Glucose Level 117.0 mg/dL (74-106); Magnesium 1.8 mg/dL (1.6-2.4); Potassium 4.3 mEq/L (3.5-5.1)
--- NOTE | 2025-03-08 10:00 | P.PN ---
Date of Service: 03/08/25 [facility] Live Progress Note Subjective Chief Complaint: Subcapital right femur fracture, closed, displaced Subjective: Improving Patient on room air in no apparent distress with RN at the bedside. Patient endorses improving pain since surgery, but endorses 1 instance of severe pain that was well relieved with one-time dose of Dilaudid overnight. Denies fever, chills, NVD, bleeding. Review of Systems 10-point ROS is otherwise unremarkable Physical Examination - Vital Signs Temp Pulse Resp BP Pulse Ox 97.9 F 81 17 126/65 99 03/08/25 0800 - Physical Exam General: Alert, Oriented x3, Cooperative, NAD, Obese HEENT: Atraumatic, Normocephalic, Mucous membr. moist/pink, EOMI Neck: Supple, JVD not distended, No Thyromegaly Respiratory: Clear to auscultation bilaterally, Normal air movement, Diminished Cardiovascular: No edema, Normal pulses, Regular rate/rhythm, Normal S1 S2 Capillary refill: <2 Seconds Gastrointestinal: Normal bowel sounds, Soft and benign, Non-distended Musculoskeletal: No clubbing, No swelling, No contractures, No erythema, No warmth, PROM RLE Integumentary: No rashes, No breakdown, No significant lesion, No erythema, No warmth, No cyanosis Neurological: Normal speech, Normal tone, Sensation intact, Cranial nerves 3-12 intact, Normal affect - Studies Laboratory Data (last 24 hrs) Creatinine 0.43 03/08/2025 BUN 16 Glucose 117 Hgb 10.6 Medications List Reviewed: Yes Assessment And Plan - Plan Assessment: 79-year-old female presents with reports of right hip pain and right shoulder pain with limited range of motion after mechanical fall at [employer] without LOC, dizziness, lightheadedness, vision alterations. Patient has prior medical history of breast cancer and atrial fibrillation. S/p reduction with Dr Bunch and restarted on home Eliquis. Patient pending insurance authorization for SNF versus IPR. Request received for P2P for inpatient rehab, left message for callback to complete peer to peer. Plan: Subcapital right femur fracture, closed, displaced Hip pain Osseous metastatic disease Status post reduction with Dr. Bunch 03/03 - X-ray results as noted below Eliquis resumed - EKG reviewed, nonconcerning - CBC, BMP nonconcerning -Pain control as noted below Mechanical fall Right shoulder pain Right hip pain Right shoulder x-ray without acute osseous abnormality Pelvis/hip x-ray right subcapital femoral neck fracture with paralateral displacement by at least one third shaft width. Of note, scattered osseous lesions concerning for metastatic disease. Spine x-ray without concern for acute fracture/malalignment. However, evidence of osseous metastatic disease. Right femur x-ray nonconcerning for pathological fracture CT hip nonconcerning for pathological fracture, specimen sent for further eval - Multimodal pain control with Ibuprofen 400 mg Q 6 hours as needed, Robaxin-750 milligrams every 8 hours, [place] 5 q4h PRN, morphine 4 mg IV Q 4 hours as needed for severe pain, will need to have vitals monitored to prevent hemodynamic intability/respiratory depression. Continue home Lyrica and tramadol Breast cancer, right Metastasis Followed by Dr.Kai Anderson at [facility] Evidence of metastasis on hip and spine x-rays. Patient and family aware prior to arrival. Continue letrozole 2.5 mg daily Glaucoma, right eye Continue latanoprost in right eye nightly Dispo: [facility] declined IPR, patient informed and states that she plans to talk to her daughter to likely appeal the decision Likely SNF Discharge Plan: Rehab Plan to discharge in: Medically ready once Auth received
[2025-03-08] MEDS: HYDROMORPHONE HCL 0.5 MG/0.5 ML INJ IV ONE (13:20)
[2025-03-08] MEDS: HYDROCODONE/APAP 7.5/325 MG TAB PO PRN (23:23)
--- NOTE | 2025-03-09 13:40 | P.PN ---
Date of Service: 03/09/25 Progress Note Subjective Chief Complaint: Subcapital right femur fracture, closed, displaced Subjective: Improving Patient on room air in no apparent distress with RN at the bedside. Patient endorses improving pain since surgery, but endorses 1 instance of severe pain that was well relieved with one-time dose of Dilaudid overnight. Denies fever, chills, NVD, bleeding. Review of Systems 10-point ROS is otherwise unremarkable Physical Examination - Vital Signs Temp Pulse Resp BP Pulse Ox 97.8 F 79 17 134/66 100 03/09/25 0800 - Physical Exam General: Alert, Oriented x3, Cooperative, NAD, Obese HEENT: Atraumatic, Normocephalic, Mucous membr. moist/pink, EOMI Neck: Supple, JVD not distended, No Thyromegaly Respiratory: Clear to auscultation bilaterally, Normal air movement, Diminished Cardiovascular: No edema, Normal pulses, Regular rate/rhythm, Normal S1 S2 Capillary refill: <2 Seconds Gastrointestinal: Normal bowel sounds, Soft and benign, Non-distended Musculoskeletal: No clubbing, No swelling, No contractures, No erythema, No warmth, PROM RLE Integumentary: No rashes, No breakdown, No significant lesion, No erythema, No warmth, No cyanosis Neurological: Normal speech, Normal tone, Sensation intact, Cranial nerves 3-12 intact, Normal affect - Studies Laboratory Data (last 24 hrs) Creatinine 0.43 03/08/2025 BUN 16 Glucose 117 Hgb 10.6 Medications List Reviewed: Yes Assessment And Plan - Plan Assessment: 79-year-old female presents with reports of right hip pain and right shoulder pain with limited range of motion after mechanical fall at [employer] without LOC, dizziness, lightheadedness, vision alterations. Patient has prior medical history of breast cancer and atrial fibrillation. S/p reduction with Dr Bunch and restarted on home Eliquis. Patient pending insurance appeal for IPR. Plan: Subcapital right femur fracture, closed, displaced Hip pain Osseous metastatic disease Status post reduction with Dr. Bunch 03/03 - X-ray results as noted below Eliquis resumed - EKG reviewed, nonconcerning - Monitor CBC and BMP as needed - Pain control as noted below Mechanical fall Right shoulder pain Right hip pain Right shoulder x-ray without acute osseous abnormality Pelvis/hip x-ray right subcapital femoral neck fracture with paralateral displacement by at least one third shaft width. Of note, scattered osseous lesions concerning for metastatic disease. Spine x-ray without concern for acute fracture/malalignment. However, evidence of osseous metastatic disease. Right femur x-ray nonconcerning for pathological fracture CT hip nonconcerning for pathological fracture, specimen sent for further eval - Multimodal pain control with Ibuprofen 400 mg Q 6 hours as needed, Robaxin-750 milligrams every 8 hours, [place] 5 q4h PRN, morphine 4 mg IV Q 4 hours as needed for severe pain, will need to have vitals monitored to prevent hemodynamic intability/respiratory depression. Continue home Lyrica and tramadol Breast cancer, right Metastasis Followed by Dr.Kai Anderson at [facility] Evidence of metastasis on hip and spine x-rays. Patient and family aware prior to arrival. Continue letrozole 2.5 mg daily Glaucoma, right eye Continue latanoprost in right eye nightly Dispo: [employer] declined IPR, pending appeal Discharge Plan: IPR versus SNF Plan to discharge in: Medically ready once Auth received
[2025-03-10] MEDS: MORPHINE 2 MG/ML SYR IV ONE (14:47)
--- NOTE | 2025-03-10 18:24 | P.PN ---
Subjective Date of Service: 03/10/25 Chief Complaint: Subcapital right femur fracture, closed, displaced Patient ambulated with physical therapy today using a walker. She was complaining of pain after ambulating. Physical Examination - Vital Signs Temperature: 98.4 F Blood Pressure: 120/60 Pulse: 80 Respirations: 18 Pulse Ox (%): 96 - Studies Medications List Reviewed: Yes Assessment And Plan - Plan Physical Exam General: Alert, Oriented x3, Cooperative, NAD, Obese HEENT: Atraumatic, Normocephalic, Mucous membr. moist/pink, EOMI Respiratory: Clear to auscultation bilaterally, Normal air movement, Diminished Cardiovascular: No edema, Normal pulses, Regular rate/rhythm, Normal S1 S2 Gastrointestinal: Normal bowel sounds, Soft and benign, Non-distended Integumentary: No rashes, No breakdown, No cyanosis Neurological: Normal speech, Normal tone, Sensation intact, Cranial nerves 3-12 intact, Normal affect Assessment: 79-year-old female presents with reports of right hip pain and right shoulder pain with limited range of motion after mechanical fall at [employer] without LOC, dizziness, lightheadedness, vision alterations. Patient has prior medical history of breast cancer and atrial fibrillation. S/p reduction with Dr Bunch and restarted on home Eliquis. Patient pending insurance appeal for IPR. Plan: Subcapital right femur fracture, closed, displaced Hip pain Mechanical fall Osseous metastatic disease Status post hemiarthroplasty by Dr. Bunch 03/03 Continue Eliquis Analgesics as needed Continue home dose Lyrica Breast cancer, right Metastasis Followed by Dr.Kai Anderson at [facility] Evidence of metastasis on hip and spine x-rays. Patient and family aware prior to arrival. Continue letrozole 2.5 mg daily Glaucoma, right eye Continue latanoprost in right eye nightly Dispo: Patient denied inpatient rehab. She has been evaluated for SNF.
[2025-03-11 11:06] LABS: Absolute Lymphocytes (CBC) 0.9 K/uL (0.7-4.9); Hematocrit 35.4 % (36.0-45.0); Hemoglobin 11.6 g/dL (12.0-15.0); MCH 30.7 pg (27.0-35.0); MCHC 32.9 g/dL (32.0-36.0); MCV 93.4 fL (80-100); MPV 9.9 fL (7.6-11.3); Nucleated RBC Absolute Count 0.0 (0-0); Nucleated Red Blood Cells % 0.0 % (0-0); RBC Red Blood Cell Count 3.79 M/uL (3.86-4.86); White Blood Count 7.60 thou/uL (4.3-10.9)
[2025-03-11 11:15] LABS: Anion Gap 7.3 mEq/L (5.0-15.0); BUN Blood Urea Nitrogen 20.0 mg/dL (7-18); Glucose Level 128.0 mg/dL (74-106); Potassium 4.3 mEq/L (3.5-5.1)
[2025-03-11 11:49] VITALS: O2SAT 99
--- NOTE | 2025-03-11 15:38 | P.DS ---
Admission Date: 03/01/25 Discharge Date: 03/11/25 Disposition: TRANSFER TO SNF - REHAB Discharge Condition: GOOD Reason for Admission: Subcapital right femur fracture, closed, displaced Hospital Course: Patient admitted to the medical floor following medical problems addressed: Subcapital right femur fracture, closed, displaced Hip pain Osseous metastatic disease Patient was seen for hip fracture after a fall at [employer]. X-rays were taken confirming the fracture of the subcapital right femur. Fracture was closed and displaced. She has subsequent hip pain related to the injury. Status post hemiarthroplasty by Dr. Bunch on 03/03. Patient seen and evaluated by physical therapy and has been able to ambulate with a walker. Labs were monitored throughout hospitalization to monitor for infection or electrolyte imbalances. Pain is controlled with ibuprofen, home tramadol, Lyrica, [place]. Patient is on Eliquis which was resumed postprocedure without concern for bleeding. Patient was denied acute inpatient rehab by insurance. She has been accepted to [facility] for skilled rehab. Mechanical fall Right shoulder pain Patient had fall to right side in [employer]. While she fractured her hip, her right shoulder is also having pain and limited range of motion. X-rays were completed in the emergency department which showed no fracture to the right shoulder, or fracture to the hip as noted above. Additionally, it was noted the patient had evidence of osseous metastatic disease. This was discussed with patient and she was previously aware. Physical therapy and Occupational Therapy has been working with her to help improve mobilization and reduce pain. CT of the hip was completed for further evaluation for concern for pathological fracture in setting of metastatic disease which was negative. The specimen was sent for further evaluation to pathology postprocedure. Breast cancer, right Metastasis Followed by Dr.Kai Anderson at [facility] Evidence of metastasis on hip and spine x-rays. Patient and family aware prior to arrival. Continued letrozole 2.5 mg daily Glaucoma, right eye Continued latanoprost in right eye nightly Vital Signs/Physical Exam: Temp Pulse Resp BP Pulse Ox 97.7 F 88 16 140/73 100 03/11/25 12:00 03/11/25 12:00 03/11/25 12:00 03/11/25 12:00 03/11/25 12:00 General: Alert, In no apparent distress, Oriented x3 HEENT: Mucous membr. moist/pink Neck: JVD not distended Respiratory: Clear to auscultation bilaterally, Normal air movement Cardiovascular: Regular rate/rhythm, Normal S1 S2 Gastrointestinal: Normal bowel sounds, Soft and benign, Non-distended, No tenderness Musculoskeletal: Swelling (Right upper extremity) Integumentary: No rashes, No cyanosis Neurological: Normal speech, Normal strength at 5/5 x4 extr, Cranial nerves 3-12 intact Lymphatics: Other (Right upper extremity lymphedema) Laboratory Data at Discharge: WBC 7.60 thou/uL (4.3-10.9) 03/11/25 10:45 Hgb 11.6 g/dL (12.0-15.0) L 03/11/25 10:45 Hct 35.4 % (36.0-45.0) L 03/11/25 10:45 Plt Count 290 thou/uL (152-406) 03/11/25 10:45 PT 16.2 SECONDS (10-13.0) H 03/01/25 14:55 INR 1.45 03/01/25 14:55 APTT 33.4 SECONDS (27.2-37.4) 03/01/25 14:55 Sodium 137 mEq/L (136-145) 03/11/25 10:45 Potassium 4.3 mEq/L (3.5-5.1) 03/11/25 10:45 BUN 20 mg/dL (7-18) H 03/11/25 10:45 Creatinine 0.53 mg/dL (0.55-1.02) L 03/11/25 10:45 Glucose 128 mg/dL (74-106) H 03/11/25 10:45 Phosphorus 3.9 mg/dL (2.5-4.9) 03/08/25 04:12 Magnesium 1.8 mg/dL (1.6-2.4) 03/08/25 04:12 Home Medications: Apixaban [Eliquis] 1 tab PO DAILY 03/01/25 Latanoprost Ophth [Xalatan 0.005%*] 1 drop EACH EYE BEDTIME 03/01/25 Letrozole [Femara*] 2.5 mg PO DAILY 03/01/25 Pregabalin [Lyrica] 50 mg PO QID 03/01/25 Tramadol HCl [Ultram] 100 mg PO BID 03/01/25 Ensure Enlive 237 ml PO BID can 03/09/25 Hydrocodone 7.5/APAP 325 [[place] 7.5/325 mg*] 1 tab PO Q4H PRN tab 03/09/25 Mupirocin Oint [Bactroban 2% Ointment*] 1 appl TOP BID tube 03/09/25 methocarbamoL [Robaxin*] 1,000 mg PO TID PRN tab 03/09/25 Physician Discharge Instructions: PROBLEM: Hip fracture, hip pain, shoulder pain GOAL: Clear understanding of disease process, improve mobilization, reduce pain with mobilization INSTRUCTIONS: HEP take all medications as prescribed Follow-up with your PCP upon discharge from rehabilitation Diet: Resume heart healthy diet Activity: Activities as tolerated allowed by physical therapy Diet: AHA Activity: Weight bearing as tolerated Followup: NONE,NONE [Primary Care Provider] - Time spent managing pt's care (in minutes): 38
[2025-03-11 17:15] VITALS: BP 127/70; TEMP 98.1
== END 2025-03-11 18:00 | DRG 522 ==
LOC: ER 13:11 → ERHOLD 15:52 → 3RD-ICU 17:09 → 4TH 03-03 14:53
PROVIDERS: ADMIT Internal Medicine; ATTEND Internal Medicine
PROC: 0SRR0J9 Replacement of Right Hip Joint, Femoral Surface with Synthetic Substitute, Cemented, Open Approach (ICD-10-PCS; principal; 2025-03-03 11:30)
DX: S72.011A Unspecified intracapsular fracture of right femur, initial encounter for closed fracture (principal); E44.1 Mild protein-calorie malnutrition; C79.51 Secondary malignant neoplasm of bone; I48.91 Unspecified atrial fibrillation; M25.511 Pain in right shoulder; E66.9 Obesity, unspecified; H40.9 Unspecified glaucoma; C50.911 Malignant neoplasm of unspecified site of right female breast; Z66 Do not resuscitate; Z88.2 Allergy status to sulfonamides; Z88.5 Allergy status to narcotic agent; Z85.3 Personal history of malignant neoplasm of breast; Z68.27 Body mass index [BMI] 27.0-27.9, adult; Z79.01 Long term (current) use of anticoagulants; Z79.899 Other long term (current) drug therapy; W18.30XA Fall on same level, unspecified, initial encounter; Y92.512 Supermarket, store or market as the place of occurrence of the external cause; Y93.9 Activity, unspecified; Y99.9 Unspecified external cause status
CPT/HCPCS: 36415; 70450; 72125; 72170; 73700; 80048; 83735; 84100; 85025; 85027; 85610; 85730; 88305; 88311; 93005; 94760; 96374; 96375; 97110; 97116; 97161; 97165; 97530; 99285; J0171; J0690; J1100; J1171; J1644; J2003; J2250; J2270; J2405; J2704; J2795; J2800; J3010; J7030